=== PATIENT | male | born 1970 | race African-American/Black ===

== ENCOUNTER 2018-05-07 21:22 | Emergency (ER) | payer OTHER ==
[~2018-05-07] VITALS: Ht 182.9 cm; Wt 77.3 kg
[2018-05-07 21:26] VITALS: Ht 182.9 cm; Wt 77.3 kg
--- NOTE | 2018-05-08 00:23 | PSY ---
Date/Time of Note Date/Time of Note DATE: 05/08/18 TIME: 00:17 Psychiatric Subjective Eval Consent Pt consented to telemedicine: Yes Subjective Evaluation Patient location: emergency Chief Complaint: BIBA [id number],wants to run into traffic,c/o L foot pain Allergies: Coded Allergies: No Known Allergy (Unverified , 05/07/18) Psychiatric Objective Eval Mental Status Examination: Laboratory Results Laboratory Tests Test 05/07/18 22:07 White Blood Count 10.0 10^3/ul Red Blood Count 4.21 10^6/ul Hemoglobin 11.7 g/dl Hematocrit 37.9 % Mean Corpuscular Volume 90.0 fl Mean Corpuscular Hemoglobin 27.8 pg Mean Corpuscular Hemoglobin Concent 30.9 g/dl Red Cell Distribution Width 15.0 % Platelet Count 414 10^3/UL Mean Platelet Volume 9.5 fl Immature Granulocytes % 0.500 % Neutrophils % 57.4 % Lymphocytes % 30.5 % Monocytes % 9.6 % Eosinophils % 1.3 % Basophils % 0.7 % Nucleated Red Blood Cells % 0.0 /100WBC Immature Granulocytes # 0.050 10^3/ul Neutrophils # 5.7 10^3/ul Lymphocytes # 3.0 10^3/ul Monocytes # 1.0 10^3/ul Eosinophils # 0.1 10^3/ul Basophils # 0.1 10^3/ul Nucleated Red Blood Cells # 0.0 10^3/ul Sodium Level 138 mmol/L Potassium Level 4.3 mmol/L Chloride Level 102 mmol/L Carbon Dioxide Level 22 mmol/L Anion Gap 14 Blood Urea Nitrogen 15 mg/dl Creatinine 0.91 mg/dl Est Glomerular Filtrat Rate mL/min > 60 mL/min Glucose Level 116 mg/dl Calcium Level 9.9 mg/dl Total Bilirubin 0.0 mg/dl Direct Bilirubin 0.00 mg/dl Indirect Bilirubin 0.0 mg/dl Aspartate Amino Transf (AST/SGOT) 28 IU/L Alanine Aminotransferase (ALT/SGPT) 10 IU/L Alkaline Phosphatase 94 IU/L Total Protein 8.6 g/dl Albumin 4.8 g/dl Globulin 3.80 g/dl Albumin/Globulin Ratio 1.26 Salicylates Level < 1.0 mg/dl Acetaminophen Level < 10.0 ug/ml Ethyl Alcohol Level 160.0 mg/dl Assessment and Plan Recommendation/Plan Discharge Disposition: Psychiatric inpatient Legal Status: Voluntary Assessment Additional comments: IDENTIFYING INFORMATION: 47 year old Male patient who is c urrently located at the hospital and for whom psychiatric consultation was requested. SOURCES OF INFORMATION: The patient who appears to be somewhat reliable and the medical records; the nursing staff. CHIEF COMPLAINT: "voices". HISTORY OF PRESENT ILLNESS: The patient was interviewed via telemedicine in the presence of and under the supervision of nursing staff of the hospital. The consent to conducting this interview via telemedicine was obtained by the nursing staff at the hospital. ROMINA Ritchie reports that the patient presented with AH telling him to run into traffic. Is not on a 5150 hold. The patient reports having depressed mood, AH, SI with plan to walk into traffic, hopelessness, helplessness. The patient denies having delusions, anhedonia. The patient reports drinking 2-3 drinks per day. Last drink was a few days ago. The patient denies using alcohol heavily or regularly. The patient denies using any other substances. PAST MEDICAL HISTORY: HTN, asthma. CURRENT MEDICATIONS: abilify, trazodone- noncompliant. ALLERGIES TO MEDICATIONS: NKDA. LABORATORY TESTS: CBC with H/H 11.7/37.9, CMP wnl, UDS pending, alcohol level 160. SOCIAL HISTORY: homeless, on SSI, single, has 1 daughter. REVIEW OF SYSTEMS: Constitutional (e.g., fever, weight loss): negative; Eyes, Ears, Nose, Mouth, Throat: negative; Cardiovascular: negative; Respiratory: negative; Gastrointestinal: negative; Genitourinary: negative; Musculoskeletal: negative; Integumentary (skin and/or breast): negative; Neurological: negative; Psychiatric: as per HPI; Endocrine: negative; Hematologic/Lymphatic: negative; Allergic/Immunologic: negative. MENTAL STATUS EXAMINATION: General Appearance and Behavior: Calm, cooperative with the interview, pleasant with the current interviewer, makes fair eye contact, fairly groomed, no abnormal movements noted, Speech: Regular rate, regular rhythm, normal latency, normal volume, somewhat decreased amount, Flow of thought: sequential, logical, goal-directed, Content of thought: + auditory hallucinations, no visual hallucinations, no delusions, positive for suicidal ideation; no homicidal ideation, Mood: "depressed", Affect: dysthymic, dysphoric, not reactive, Attention: normal based on the interview, Insight: fair, Judgment: poor, Memory: normal based on the interview, Sensorium: alert and oriented to person, place and date. ASSESSMENT: The patient's presentation and history are consistent with the diagnosis of unspecified psychotic disorder. The patient presents with depressive and psychotic symptoms in the context of medication noncompliance, psychosocial stressors and substance use. PLAN: - Medication management: Would start abilify 5 mg po bid. Would start haloperidol 5 mg IM PRN severe agitation q4 hours. Would start diphenhydramine 50 mg IM PRN severe agitation q4 hours. Would start lorazepam 2 mg IM PRN severe agitation q4 hours Will defer to the inpatient psychiatry team for other medication changes. - Labs: Please check UDS. - Psychotherapy: Provided supportive psychotherapy and psychoeducation. - Disposition: Would recommend voluntary admission to the inpatient psychiatric unit as the patient would benefit from such an intervention so long as the patient has been cleared medically for admission to psychiatry. The patient is agreeable to being hospitalized in the inpatient psychiatric unit at this time. Would place on suicide precautions. I called the emergency room physician who is taking care of the patient to discuss about the above plan but the emergency room physician is not available at this time. I left my phone number with the hospital staff requesting a callback so that the emergency room physician can reach me when they become available. HILARY KIRK MD May 08, 2018 00:23
[2018-05-08] MEDS ORDERED: ARIPIPRAZOLE 5 MG TAB PO STA (00:41)
--- NOTE | 2018-05-08 00:43 | ERD ---
ER Documentation Chief Complaint Chief Complaint CLARA [id number],wants to run into traffic,c/o L foot pain HPI This is a 47-year-old male brought in by rescue who says he wants to run into traffic. He says his plan is to run into traffic and he hears voices that are urging him on. He has a history of previous psychiatric disease. Denies fevers chills nausea vomiting. Denies any visual hallucinations. Denies any homicidal ideation also complains of chronic left foot pain that he said is been there for "2 years ". No new trauma. No other current issues. ROS All systems reviewed and are negative except as per history of present illness. Allergies Allergies: Coded Allergies: No Known Allergy (Unverified , 05/07/18) PMhx/Soc Medical and Surgical Hx: pt denies Surgical Hx Hx Psychiatric Problems: Yes (BIPOLAR SCHIZOPHRENIA) Hx Alcohol Use: Yes Hx Substance Use: Yes Hx Tobacco Use: Yes Smoking Status: Never smoker Physical Exam Vitals Vital Signs Date Temp Pulse Resp B/P (MAP) Pulse Ox O2 O2 Flow FiO2 Time Delivery Rate 05/07/18 97.9 98 18 164/95 97 21:26 (118) Physical Exam Const: No acute distress Head: Atraumatic Eyes: Normal Conjunctiva ENT: Normal External Ears, Nose and Mouth. Neck: Full range of motion. No meningismus. Resp: Clear to auscultation bilaterally Cardio: Regular rate and rhythm, no murmurs Abd: Soft, non tender, non distended. Normal bowel sounds Skin: No petechiae or rashes Back: No midline or flank tenderness Ext: No cyanosis, or edema Neur: Awake and alert Psych: Normal Mood and Affect Result Diagram: 05/07/18220605/07/182206 Results 24 hrs Laboratory Tests Test 05/07/18 22:07 White Blood Count 10.0 10^3/ul Red Blood Count 4.21 10^6/ul Hemoglobin 11.7 g/dl Hematocrit 37.9 % Mean Corpuscular Volume 90.0 fl Mean Corpuscular Hemoglobin 27.8 pg Mean Corpuscular Hemoglobin Concent 30.9 g/dl Red Cell Distribution Width 15.0 % Platelet Count 414 10^3/UL Mean Platelet Volume 9.5 fl Immature Granulocytes % 0.500 % Neutrophils % 57.4 % Lymphocytes % 30.5 % Monocytes % 9.6 % Eosinophils % 1.3 % Basophils % 0.7 % Nucleated Red Blood Cells % 0.0 /100WBC Immature Granulocytes # 0.050 10^3/ul Neutrophils # 5.7 10^3/ul Lymphocytes # 3.0 10^3/ul Monocytes # 1.0 10^3/ul Eosinophils # 0.1 10^3/ul Basophils # 0.1 10^3/ul Nucleated Red Blood Cells # 0.0 10^3/ul Sodium Level 138 mmol/L Potassium Level 4.3 mmol/L Chloride Level 102 mmol/L Carbon Dioxide Level 22 mmol/L Anion Gap 14 Blood Urea Nitrogen 15 mg/dl Creatinine 0.91 mg/dl Est Glomerular Filtrat Rate mL/min > 60 mL/min Glucose Level 116 mg/dl Calcium Level 9.9 mg/dl Total Bilirubin 0.0 mg/dl Direct Bilirubin 0.00 mg/dl Indirect Bilirubin 0.0 mg/dl Aspartate Amino Transf (AST/SGOT) 28 IU/L Alanine Aminotransferase (ALT/SGPT) 10 IU/L Alkaline Phosphatase 94 IU/L Total Protein 8.6 g/dl Albumin 4.8 g/dl Globulin 3.80 g/dl Albumin/Globulin Ratio 1.26 Salicylates Level < 1.0 mg/dl Acetaminophen Level < 10.0 ug/ml Ethyl Alcohol Level 160.0 mg/dl Procedures/MDM Emergency department course: Patient seen and evaluated. Placed in bed on 121 for security secondary to psychiatric complaint. Telemetry psychiatry ordered. Medical decision making: Patient's behavioral symptoms have stabilized while in the department. Patient is medically cleared and appropriate for psychiatric evaluation and work up. No e/o neurologic, toxic, infectious, or metabolic cause. Commended for voluntary admission with medication ordered. Currently pending PET team placement Departure Diagnosis: Primary Impression: Suicidal ideation Condition: ROSS Dickinson May 08, 2018 00:43
[2018-05-08] MEDS ORDERED: INDO-39 PO (04:20)
[2018-05-08] MEDS ORDERED: TRAZ-150 PO (04:20)
--- NOTE | 2018-05-08 11:15 | PSY ---
Date/Time of Note Date/Time of Note DATE: 05/08/18 TIME: 11:10 Psychiatric Subjective Eval Consent Pt consented to telemedicine: Yes Subjective Evaluation Patient location: emergency Chief Complaint: CLARA [id number],wants to run into traffic,c/o L foot pain History of present illness 47 yo male with hx schizophrenia and alcohol use BIB EMS due to expressing SI; pt was intoxicated, BAL 160. Pt is sober now, he denies SI or HI, denies AH or VH; denies depressed mood; he say she was discharged from in psych 2 days ago. He says he lives iwth his father and can return to his father's home. He says he takes his meds as prescribed. He says he was just intoxicated last night. Felles safe about being discharged. Past psychiatric history prior inpts; last one -2 days ago; reprots hx SA a year ago by walking rani traffic Hospitalization: Suicidal Attempt(s) Family History denies Medical history Problems Medical Problems: (1) Suicidal ideation Status: Acute Allergies: Coded Allergies: No Known Allergy (Unverified , 05/07/18) Substance Abuse Substance abuse history: Yes Prior substance abuse treatmen: Yes Social History Marital status: single Level of education: 10th grade DPA/Conservatorship: No Occupation/Half-Way: on ssi, lvies with his father Psychiatric Objective Eval Review of Systems: Review of Systems: Not Applicable Physical Examination: Physical Examination: Not Applicable Sleep: Adequate Energy: Adequate Interest: Adequate Mental Status Examination: Appearance: Disheveled Eye Contact: Good Psychomotor Activity: Normal Behavior: Cooperative Speech: Clear AFFECT: Appropriate Mood: Appropriate/Full Though Process: Linear Thought Content: Normal Suicidal: No Homicidal: No On 72 hour hold: Yes Orientation: x4 Cognition: Alert Insight: Impared Judgement: Intact Attention Span: Intact Laboratory Results Laboratory Tests Test 05/07/18 22:07 White Blood Count 10.0 10^3/ul Red Blood Count 4.21 10^6/ul Hemoglobin 11.7 g/dl Hematocrit 37.9 % Mean Corpuscular Volume 90.0 fl Mean Corpuscular Hemoglobin 27.8 pg Mean Corpuscular Hemoglobin Concent 30.9 g/dl Red Cell Distribution Width 15.0 % Platelet Count 414 10^3/UL Mean Platelet Volume 9.5 fl Immature Granulocytes % 0.500 % Neutrophils % 57.4 % Lymphocytes % 30.5 % Monocytes % 9.6 % Eosinophils % 1.3 % Basophils % 0.7 % Nucleated Red Blood Cells % 0.0 /100WBC Immature Granulocytes # 0.050 10^3/ul Neutrophils # 5.7 10^3/ul Lymphocytes # 3.0 10^3/ul Monocytes # 1.0 10^3/ul Eosinophils # 0.1 10^3/ul Basophils # 0.1 10^3/ul Nucleated Red Blood Cells # 0.0 10^3/ul Sodium Level 138 mmol/L Potassium Level 4.3 mmol/L Chloride Level 102 mmol/L Carbon Dioxide Level 22 mmol/L Anion Gap 14 Blood Urea Nitrogen 15 mg/dl Creatinine 0.91 mg/dl Est Glomerular Filtrat Rate mL/min > 60 mL/min Glucose Level 116 mg/dl Calcium Level 9.9 mg/dl Total Bilirubin 0.0 mg/dl Direct Bilirubin 0.00 mg/dl Indirect Bilirubin 0.0 mg/dl Aspartate Amino Transf (AST/SGOT) 28 IU/L Alanine Aminotransferase (ALT/SGPT) 10 IU/L Alkaline Phosphatase 94 IU/L Total Protein 8.6 g/dl Albumin 4.8 g/dl Globulin 3.80 g/dl Albumin/Globulin Ratio 1.26 Salicylates Level < 1.0 mg/dl Acetaminophen Level < 10.0 ug/ml Ethyl Alcohol Level 160.0 mg/dl Assessment and Plan Assessment/Diagnosis Diagnosis SCHIZOAFFECTIVE D/O. ALCOHOL USE DISORDER. Recommendation/Plan Medication Management PT TO CONTINUE ON ABILIFY 15 MG POQD; TRAZODONE 150 M GPOQHS Multiple antipsychotics: Yes Psychotherapy REFER TO OUTPT, AA Discharge Disposition: Community (home) Legal Status: Release involuntary hold Other NO DTS, NO DTO, NO GD. AHSAN BEARD MD May 08, 2018 11:15
[2018-05-08 12:10] VITALS: BP 146/88; PULSE 96; RESP 16
== END 2018-05-08 12:14 | disposition home or self-care (01) ==
LOC: E/R 21:22
DX: R45.851 Suicidal ideations (principal); Z87.891 Personal history of nicotine dependence
CPT/HCPCS: 36415; 80053; 80307; 85025; Z7502; 99285